=== PATIENT | female | born 1980 | race Caucasian/White ===

== ENCOUNTER 2017-11-26 10:38 | Emergency (ER) | payer MEDICAID, OTHER ==
[2017-11-26 12:17] LABS: HCG,QUALITATIVE URINE NEGATIVE (NEGATIVE)
[2017-11-26 12:26] LABS: SQUAMOUS EPITHIAL 13 /hpf (0-5); URINE BILIRUBIN NEGATIVE (NEGATIVE); URINE BLOOD 2+ (NEGATIVE); URINE CLARITY Hazy (Clear); URINE COLOR Amber (YELLOW); URINE GLUCOSE (UA) NORMAL (Normal); URINE LEUKOCYTE ESTERASE NEG Leu/uL (Negative); URINE NITRATE NEGATIVE (NEGATIVE); URINE PROTEIN 2+ mg/dL (NEGATIVE)
[2017-11-26] MEDS ORDERED: Sodium Chloride 0.9% 1,000 ML IV ONE (12:41)
--- NOTE | 2017-11-26 13:12 | RAD ---
HISTORY: abd pain COMPARISON: None available TECHNIQUE: Chest, one view. FINDINGS: LUNGS: Right hilar/infrahilar opacity, possibly pneumonia. Please note that chest x-ray has limited sensitivity for the detection of pulmonary masses. PLEURA: No significant pleural effusion identified. No definite pneumothorax . CARDIOVASCULAR: The cardiomediastinal silhouette appears within normal limits of size. OSSEOUS STRUCTURES: No acute osseous abnormality identified. VISUALIZED UPPER ABDOMEN: Unremarkable. OTHER FINDINGS: None. IMPRESSION: Right hilar/infrahilar opacity, possibly related to pneumonia. Correlate clinically and if indicated, recommend chest PA and lateral views.
[2017-11-26 13:37] LABS: HEMOGLOBIN 12.5 g/dL (11.0-16.0); MEAN CELL VOLUME 91.6 fL (81.0-99.0); MEAN CORPUSCULAR HEMOGLOBIN 30.8 pg (27.0-31.0); MEAN CORPUSCULAR HGB CONC 33.6 g/dL (33.0-37.0); RBC 4.07 Mil/uL (3.80-5.20); RED CELL DISTRIBUTION WIDTH 12.9 % (11.5-14.5); WHITE BLOOD COUNT 5.2 K/uL (4.8-10.8)
[2017-11-26] MEDS ORDERED: Sodium Chloride 0.9% 1,000 ML ONE (13:37)
[2017-11-26 13:38] LABS: BASO % 0.7 % (0.0-2.0); EOS # 0.2 K/uL (0.0-0.7); LYMPH # 2.2 K/uL (1.0-4.3); LYMPH % 41.6 % (20.0-40.0); MONO # 0.4 K/uL (0.0-0.8); MONO % 6.9 % (0.0-10.0); NEUT # 2.5 K/uL (1.8-7.0); NEUT % 47.8 % (50.0-75.0); NRBC % 0.1 % (0.0-2.0)
--- NOTE | 2017-11-26 13:45 | C.PDOC ---
History Of Present Illness 37-year-old female, presents to the emergency department with complaints of 1.5 month duration of nausea and intermittent non-bloody/non-bilious vomiting, that is associated with epigastric abdominal pain. Patient states that pain has worsened over the past few days, resulting in her coming to the ED for evaluation. Denies fevers, chills, chest pain, shortness of breath, change in bowel habits, rashes, recent travel, sick contacts, or any other associated symptoms. No other complaints at this time. Time Seen by Provider: 11/26/17 11:43 Chief Complaint (Nursing): Flu-like Symptoms History Per: Patient History/Exam Limitations: no limitations Onset/Duration Of Symptoms: Days Current Symptoms Are (Timing): Still Present Past Medical History Reviewed: Historical Data, Nursing Documentation, Vital Signs Vital Signs: Last Vital Signs Temp 98.5 F 11/26/17 14:28 Pulse 61 11/26/17 14:28 Resp 18 11/26/17 14:28 BP 95/60 L 11/26/17 14:28 Pulse Ox 100 11/26/17 14:28 Family History: States: No Known Family Hx - Social History Hx Alcohol Use: No Hx Substance Use: No - Immunization History Hx Tetanus Toxoid Vaccination: No Hx Influenza Vaccination: No Hx Pneumococcal Vaccination: No Review Of Systems Except As Marked, All Systems Reviewed And Found Negative. Constitutional: Negative for: Fever, Chills Cardiovascular: Negative for: Chest Pain, Palpitations Respiratory: Negative for: Shortness of Breath Gastrointestinal: Positive for: Nausea, Abdominal Pain. Negative for: Vomiting , Diarrhea Musculoskeletal: Negative for: Neck Pain, Back Pain Skin: Negative for: Rash Neurological: Negative for: Weakness, Numbness, Headache, Dizziness Physical Exam - Physical Exam Appears: Non-toxic, No Acute Distress Skin: Normal Color, Warm, Dry, No Rash Head: Normacephalic Eye(s): bilateral: PERRL Nose: Normal Oral Mucosa: Moist Lips: Normal Appearing Neck: Normal ROM Cardiovascular: Rhythm Regular, No Murmur Respiratory: Normal Breath Sounds, No Accessory Muscle Use Gastrointestinal/Abdominal: Soft, No Tenderness, No Guarding Extremity: Normal ROM Neurological/Psych: Oriented x3 ED Course And Treatment - Laboratory Results Result Diagrams: 11/26/17 13:29 11/26/17 14:41 O2 Sat by Pulse Oximetry: 99 (RA) Pulse Ox Interpretation: Normal Medical Decision Making Medical Decision Making: Plan: * Labs * CT Abd/Pel * Morphine, IVF, Pepcid, Zofran * Urine Culture * UA/Preg * Reassess and Disposition Disposition - Disposition Referrals: José Marinelli MD [Staff Provider] - Disposition: HOME/ ROUTINE Disposition Time: 17:08 Condition: GOOD Additional Instructions: Follow up with the medical doctor/clinic 1-2 days. Return if worsened. Prescriptions: Aluminum Hydroxide/Magnesium [Maalox Plus 30 ml] 30 ml PO BID #200 ml Famotidine [Pepcid] 20 mg PO BID #20 tab Omeprazole 20 mg PO DAILY #30 tablet. Instructions: Gastritis (ED) Forms: [facility] (Moroccan) - Clinical Impression Clinical Impression: Gastritis - Scribe Statement The provider has reviewed the documentation as recorded by the Scribe (Gurwinder Louis) All medical record entries made by the Scribe were at my direction and personally dictated by me. I have reviewed the chart and agree that the record accurately reflects my personal performance of the history, physical exam, medical decision making, and the department course for this patient. I have also personally directed, reviewed, and agree with the discharge instructions and disposition.
--- NOTE | 2017-11-26 14:13 | US ---
HISTORY: RUQ abd pain COMPARISON: None available. TECHNIQUE: Sonographic evaluation of the right upper quadrant of the abdomen. FINDINGS: LIVER: Measures 13.3 cm in length. Echogenic liver may be seen in setting of hepatic parenchymal disease or fatty infiltration. No focal hepatic mass identified. The main portal vein appears patent with normal directional flow. No intrahepatic bile duct dilatation. GALLBLADDER: No gallstones. No gallbladder wall thickening or pericholecystic edema. Negative sonographic Lieberman's sign as assessed by the hosiery mender. COMMON BILE DUCT: Measures 3 mm. PANCREAS: Not well-visualized. RIGHT KIDNEY: Measures 10.1 x 4.2 x 4.6 cm. No obstructing calculus or hydronephrosis identified. AORTA: Limited visualization appears grossly unremarkable. IVC: Limited visualization appears grossly unremarkable. OTHER FINDINGS: None . IMPRESSION: Echogenic liver may be seen in setting of hepatic parenchymal disease or fatty infiltration. Findings discussed with Eri Yin on 11/26/17 at 1:47 p.m.
[2017-11-26] MEDS ORDERED: Morphine 4 MG/ML VIAL ONE (14:24)
[2017-11-26 14:58] LABS: ALB/GLOB RATIO 1.4 (1.0-2.1); ALT/SGPT 24 U/L (9-52); AST/SGOT 21 U/L (14-36); BLOOD UREA NITROGEN 9 mg/dL (7-17); CALCIUM 8.9 mg/dl (8.6-10.4); GFR AFRICAN-AMERICAN > 60; GFR NON-AFRICAN AMERICAN > 60; LIPASE 73 U/L (23-300)
[2017-11-26] MEDS ORDERED: Iodixanol 320 MG/ML 100 ML BOTTLE IV ONE (15:22)
--- NOTE | 2017-11-26 16:36 | CT ---
PROCEDURE: CT Abdomen and Pelvis with contrast HISTORY: Right sided abd pain COMPARISON: Limited abdominal ultrasound performed earlier the same day. TECHNIQUE: Contrast dose: 100 mL Visipaque 320 Radiation dose: Total exam DLP = 266.36 mGy-cm. This CT exam was performed using one or more of the following dose reduction techniques: Automated exposure control, adjustment of the mA and/or kV according to patient size, and/or use of iterative reconstruction technique. FINDINGS: Examination limited by paucity of intra-abdominal and intrapelvic fat. LOWER THORAX: No visible consolidation, pleural effusion, or pneumothorax. LIVER: Unremarkable. GALLBLADDER AND BILE DUCTS: Unremarkable. PANCREAS: Unremarkable. SPLEEN: Unremarkable. ADRENALS: Unremarkable. KIDNEYS AND URETERS: The kidneys enhance symmetrically. No hydronephrosis or obstructing calculus identified. VASCULATURE: No aortic aneurysm. BOWEL: Stomach is nondistended. Lack of oral contrast limits evaluation for bowel pathology. Bowel loops appear within normal limits of caliber without evidence of obstruction. APPENDIX: The appendix appears within normal limits of caliber. No secondary signs of acute appendicitis. PERITONEUM: No significant free fluid. No definite free air. LYMPH NODES: No bulky adenopathy identified. BLADDER: Under distended urinary bladder limits evaluation. REPRODUCTIVE: Uterus is present. BONES: No acute osseous abnormality is detected. OTHER FINDINGS: None. IMPRESSION: No acute findings identified. See above.
[2017-11-26] MEDS ORDERED: Alum-Mag Hydrox-Simethicone Susp (30 mL) PO STA (16:41)
[2017-11-26] MEDS ORDERED: Aluminum Hydroxide/Magnesium Hydroxide Susp (30 mL) ONE (17:09)
[2017-11-26 17:17] VITALS: BP 93/61; PULSE 84; RESP 20; TEMP 97.9; O2SAT 97
== END 2017-11-26 17:47 | disposition home or self-care (01) ==
LOC: C.ER 10:38
DX: K29.70 Gastritis, unspecified, without bleeding (principal)
CPT/HCPCS: 71045; 74177; 76705; 80053; 81001; 83690; 84703; 85025; 87086; 96361; 96374; 96375; 99285; J1885; J2405; J7040; Q9967